=== PATIENT | female | born 1955 | race Caucasian/White ===

== ENCOUNTER 2020-02-25 07:13 | Observation (INO) | payer MEDICARE, SELFPAY ==
--- NOTE | ~2020-02-25 | CT_ITS ---
EXAMINATION: CT lumbar spine wo con DATE: 02/25/2020 09:11 INDICATION: Severe low back pain TECHNIQUE: Computed tomography (CT) of the lumbar spine was performed without intravenous contrast. T he dose-length product (DLP) was 1106.27 mGy-cm. Iterative reconstruction was used. COMPARISON: MRI, 04/17/2012 FINDINGS: There is no fracture, dislocation, or subluxation. There is moderate loss of intervertebral disc space height at L3-4 and L5-S1. The vertebral body heights are maintained. Small degenerative o steophytes project from the anterior endplates of multiple vertebral bodies. There is mild multilevel facet osteoarthritis. A cyst is noted in the liver. The gallbladder is surgically absent. IMPRESSION: 1. Mild lumbar spondylosis without acute findings or significant interval change. Reviewed, dictated and finalized at location A. IMPRESSION: 1. Mild lumbar spondylosis without acute findings or significant interval griffin allan
[2020-02-25 07:11] VITALS: BP 151/80; PULSE 99; RESP 18; TEMP 37; O2SAT 93
--- NOTE | 2020-02-25 07:30 | ED.BACK ---
HPI - Back Pain/Injury General Chief Complaint: Back Pain/Injury Stated Complaint: back pain Time Seen by Provider: 02/25/20 07:30 Source: patient and family Mode of arrival: EMS Limitations: no limitations History of Present Illness HPI Narrative: Patient is a 65-year-old female with a history of chronic lower back pain who presents via EMS with worsening lower back pain. Patient states her pain started yesterday, is sharp, stabbing in nature, feels like spasm type pain which has a burning sensation that she feels radiating down into her toes. Patient states pain is exacerbated with movement and improved with rest. Patient states that yesterday she had a mild right sciatica flareup which is typical for her, used a TENS unit that belonged to a friend which did improve the pain, and then did some back exercises with the instruction of her daughter, and afterwards pain has been much worse. Patient states she was bending forward over a table and doing leg lifts and now her pain is more severe. No recent falls or injury. No saddle anesthesia. No bowel or bladder incontinence or difficulties. No numbness in her lower extremities. Related Data Home Medications Medication Instructions Recorded Confirmed ascorbic acid (vitamin C) 1,000 mg 1 gm PO DAILY 10/11/19 tablet cod liver oil 1 cap PO TID 10/11/19 fluticasone propionate 50 2 spray NASAL DAILY 10/11/19 mcg/actuation nasal spray,suspension montelukast 10 mg tablet 10 mg PO DAILY 10/11/19 Allergies Allergy/AdvReac Type Severity Reaction Status Date / Time No Known Allergies Allergy Unverified 02/25/20 07:24 Review of Systems Review of Systems: Narrative: CONSTITUTIONAL: Denies fever CARDIOVASCULAR: Denies chest pain RESPIRATORY: Denies cough or dyspnea. GASTROINTESTINAL: Denies abdominal pain SKIN: Denies rash MUSCULOSKELETAL: Lower back pain present NEUROLOGIC: Denies headache PMFSH Past Medical History Medical History Depression Dysfunctional gallbladder MELANI (generalized anxiety disorder) Panic disorder Polyarthralgia Psoriasis Seasonal allergic rhinitis Family History Family History (Updated 06/05/16 @ 08:39 by DOCTOR UNKNOWN) Mother Family history of gastrointestinal disorder Family history of rheumatoid arthritis Family history of Parkinson's disease Family history of lung cancer Father Family history of renal cell carcinoma Other Family history of kidney disease Social History Social History Smoking status: Former smoker Smoking end date: 08/10/02 Alcohol intake: never Exam Narrative: Exam Narrative: GENERAL: Awake, alert, conversant HEAD: Normocephalic, atraumatic. EYES: PERRLA and EOMI. ENT: Nares clear, no rhinorrhea or epistaxis. Mucous membranes moist. NECK: Supple. CHEST: No respiratory distress, breathing even and non labored HEART: Regular rate, sinus rhythm ABDOMEN:Non distended, non tender EXTREMITIES: Tenderness over bilateral SI joints. Positive straight leg raise test bilaterally, greater on the left than on the right. DP pulses 2+ distally. Intact distal sensation. Full strength EHL/FHL bilateral lower extremities. No hyperreflexia. SKIN: Warm, dry, no rash. NEURO:No focal deficits. Alert and oriented x3 Course Vital Signs Vital signs: Vital Signs Temperature 37.0 C 02/25/20 07:11 Pulse Rate 99 02/25/20 07:11 Respiratory Rate 18 02/25/20 07:11 Blood Pressure 151/80 H 02/25/20 07:11 Pulse Oximetry 93 02/25/20 07:11 Temperature 37.0 C 02/25/20 07:11 Pulse Rate 78 02/25/20 09:56 Respiratory Rate 18 02/25/20 09:56 Blood Pressure 118/64 02/25/20 09:56 Pulse Oximetry 96 02/25/20 09:56 MDM - Back Pain/Injury MDM Narrative Medical decision making narrative: Patient is a 65-year-old with chronic sciatica type pain who presents with exacerbation
[2020-02-25] MEDS: ACETAMINOPHEN 500 MG TABLET 1000 MG PO (08:14)
[2020-02-25] MEDS: diazePAM 5 MG TABLET PO (08:15)
[2020-02-25] MEDS: KETOROLAC 30 MG/ML VIAL (*BKC) IV PUSH (08:17)
[2020-02-25 09:56] VITALS: BP 118/64; PULSE 78; RESP 18; O2SAT 96
--- NOTE | 2020-02-25 10:48 | PC.NURSE ---
Pt unable to tolerate bedpan. VORB for straight cath
--- NOTE | 2020-02-25 11:14 | PCOTNOTE ---
OT evaluation attempted. patient still in ED. Will attempt OT eval at later time.
--- NOTE | 2020-02-25 11:17 | PCPTNOTE ---
PT/OR orders received for this patient...attempted eval,....patient not yet on floor...will return later
[2020-02-25 11:36] VITALS: BP 120/67; PULSE 79; RESP 18; O2SAT 97
--- NOTE | 2020-02-25 12:17 | PCPTNOTE ---
PT/OT orders received to eval this patient...patient declines due to very significant pain...unable to use bed de la cruz due to pain...will see tomorrow as appropriate
--- NOTE | 2020-02-25 12:20 | PCOTNOTE ---
OT evaluation attempted. Patient refusing therapy at this time due to increased pain despite maximal encouragement. Patient agreeable to attempting therapy tomorrow. Will attempt OT evaluation at later time.
--- NOTE | 2020-02-25 14:18 | PM.IMHP ---
H&P: HPI History of Present Illness Chief complaint: lumbar radiculpathy Narrative: Shae Chahal is a 65 year old female who has a long history of chronic back pain. The patient stated that her back pain started approximately 9 years ago. She had an injury at that time where she was caring an infant and fell backwards the couple feet onto the ground her back. She has had intermittent back pain on and off since then. Patient had another episode about 7 years ago she had fallen off the wooden steps and landed on her back. The patient has not been to a chiropractor pain management. She typically is able to tolerate the discomfort. She states that when she 1st gets up out of bed she has back pain and sciatic pain that wraps around her right leg. But today it was worse than normal. The patient stated she was having difficulty sitting up and getting out of bed. Patient stated that she felt like her right leg was heavy. She has numbness and tingling to her lower extremities as well. She has a good color and circulation to lower extremities. She has tried pain medications at home and CBD oil as well. She has tried heat and ice and she also tried on a tens unit from onr of her friends. She said that she had some leftover Vicodin from I bleed a dental procedure. She took that today and it did help. She is having difficulty moving around. She has tried physical therapy in the past. She also has muscle relaxes at home. She stated that her pain is worse than normal. She is not incontinent of bowel or bladder she still has complete control of her bowel and bladder. Patient was having difficulty raising her right leg earlier in the emergency room but since she has had a pain pill she is able to raise both of her knees but is not able to do straight leg lift. Patient still is having too much pain when she sits up in the bed. Patient states that she is not able to tolerate an MRI because she has had in the past and has been too anxious even with using Ativan. The patient states that she is unable to undergo an MRI at this time because of her claustrophobia. Patient was given Valium, Toradol, dexamethasone, and Tylenol. Patient stated some relief with the pain medication. CT of the spine lumbar area was read as mild lumbar spondylosis without acute findings her significant interval changes. Patient was able to tolerate the CT scan without difficulty and stated that she has had those before. Date of service is 02/25/2020. Review of Systems Review of Systems: All systems reviewed & are unremarkable except as noted in HPI and below Constitutional: Constitutional: Reports as per HPI and Reports no additional constitutional complaints Eyes: Eyes: Reports as per HPI and Reports no additional eye complaints ENT: Reports system reviewed and no additional complaints, except as documented and Reports Normal hearing present Cardiovascular: Cardiovascular: Reports no additional cardiovascular complaints Respiratory: Respiratory: Reports no additional respiratory complaints and Reports no additional respiratory complaints Gastrointestinal: Gastrointestinal: Reports as per HPI and Reports no additional gastrointestinal complaints Musculoskeletal: Musculoskeletal: Reports no additional musculoskeletal complaints Integumentary/Breasts: Skin/Breast: Reports system reviewed and no additional complaints, except as docu and Reports as per HPI Neurologic: Reports system reviewed and no additional complaints, except as documented, Reports as per HPI and Reports Normal hearing present Psychiatric: Psychiatric: Reports no additional psychiatric complaints and Reports as per HPI Endocrine: Endocrine: Reports no additional endocrine complaints Hematologic/Lymphatic: Hematologic/Lymphatic: Reports no additional hematologic/lymphatic complaints Allergic/Immunologic: Allergic/Immunologic: Reports no additional allergic/immunologic complaints PMFSH Past Medical History
[2020-02-25 14:50] VITALS: BP 132/62; PULSE 68; RESP 14; TEMP 36.6; O2SAT 99
[2020-02-25] MEDS: PANTOPRAZOLE 40 MG TABLET PO (15:46)
[2020-02-25] MEDS: LORATADINE 10 MG TABLET PO (15:46)
[2020-02-25] MEDS: THERAPEUTIC MULTIVITAMINS/MINERALS TAB (*BKC) 1 TABLET PO (15:46)
--- NOTE | 2020-02-25 15:51 | PC.NURSE ---
This patient, Shae Chahal, was admitted to Medical Room 341-01. Patient/family oriented to hospital policies and general routines including ID bracelet, bed and alarms, visiting hours, pain management, procedures, bathroom and other care routines, personal items, smoking policy, room service/diet, and visiting hours. Valuables list has been completed. Information on how to activate the Rapid Response Team has been discussed. Patient/Family are encouraged to report perceived risks to care and to ask questions if they do not understand what they are told or what they should do.
[2020-02-25 16:10] VITALS: BMI 47.5
[2020-02-25] MEDS: GABAPENTIN 100 MG CAPSULE PO (17:33)
[2020-02-25] MEDS: CITALOPRAM HYDROBROMIDE 20 MG TABLET PO (17:33)
[2020-02-25] MEDS: DEXAMETHASONE SOD PHOS INJ 4 MG/ML VIAL IV PUSH ×2 (17:34→23:32)
[2020-02-25] MEDS: CYCLOBENZAPRINE HCL 5 MG TABLET PO (17:42)
[2020-02-25 20:22] VITALS: BP 113/63; PULSE 77; RESP 16; TEMP 36.1; O2SAT 93
[2020-02-26 05:54] LABS: Basophils Percent Auto 0.1 % (0.2-1.2); Hemoglobin 14.3 g/dL (12.0-15.0); Immature Granulocyte Absolute 0.06 K/mm3 (0.00-0.031); Immature Granulocyte Percent A 0.8 % (0-0.5); Lymphocytes Absolute Auto 0.96 K/mm3 (0.9-3.2); Lymphocytes Percent Auto 12.7 % (18.3-44.2); Mean Corpuscular HGB Conc 32.5 g/dl (32-36); Mean Corpuscular Hemoglobin 27.9 pg (26-34); Mean Corpuscular Volume 85.8 fl (80-100); Mean Platelet Volume 9.1 fl (7.4-10.4); Monocytes Absolute Auto 0.1 K/mm3 (0.1-0.6); Monocytes Percent Auto 1.2 % (2.6-8.5); Neutrophils Absolute Auto 6.4 K/mm3 (1.3-6.7); Neutrophils Percent Auto 85.2 % (45.5-73.1); Platelet Count Result 275 k/mm3 (150-375); Red Blood Count 5.13 M/mm3 (4.2-5.4); Red Cell Distribution Width 13.6 % (11.5-14.5); White Blood Count 7.6 K/mm3 (4.5-10.0)
[2020-02-26 06:00] VITALS: BP 122/73; PULSE 79; RESP 18; TEMP 36.6; O2SAT 95
[2020-02-26] MEDS: DEXAMETHASONE SOD PHOS INJ 4 MG/ML VIAL IV PUSH (06:16)
[2020-02-26 06:18] LABS: Alanine Aminotransferase 22 U/L (4-35); Albumin Level 4.3 g/dL (3.5-5.1); Alkaline Phosphatase 99 U/L (38-126); Aspartate Amino Transferase 23 U/L (14-36); Bilirubin,Total 0.5 mg/dL (0.2-1.3); Blood Urea Nitrogen 24 mg/dL (7-17); CRP 1.5 mg/dL (<1.0); Calcium 9.6 mg/dL (8.4-10.2); Carbon Dioxide 27 mmol/L (22-30); Chloride 104 mmol/L (98-107); Estimated CRCL calculation 68 ml/min; Estimated Glomerular Filt Rate > 60; Glucose 161 mg/dL (65-105); Potassium 4.2 mmol/L (3.4-5.0); Sodium 139 mmol/L (137-145)
[2020-02-26] MEDS: CYCLOBENZAPRINE HCL 5 MG TABLET PO (06:38)
[2020-02-26 07:18] LABS: Thyroid Stimulating Hormone Reflex 0.258 uIU/mL (0.465-4.68)
[2020-02-26] MEDS: KETOROLAC 15 MG/ML VIAL (*BKC) IV PUSH (07:54)
[2020-02-26 08:00] VITALS: PULSE 79; RESP 18; O2SAT 95
[2020-02-26] MEDS: FLUTICASONE PROPIONATE 0.05% NA SPR 16 GM BTL (*BKC) 2 SPRAY NASAL (08:01)
[2020-02-26] MEDS: THERAPEUTIC MULTIVITAMINS/MINERALS TAB (*BKC) 1 TABLET PO (08:02)
[2020-02-26] MEDS: GABAPENTIN 100 MG CAPSULE PO (08:02)
[2020-02-26] MEDS: ASCORBIC ACID 500 MG TABLET 1000 MG PO (08:02)
[2020-02-26] MEDS: CITALOPRAM HYDROBROMIDE 20 MG TABLET PO (08:03)
[2020-02-26] MEDS: PANTOPRAZOLE 40 MG TABLET PO (08:03)
[2020-02-26] MEDS: LORATADINE 10 MG TABLET PO (08:03)
[2020-02-26 08:37] LABS: Free T4 Free Thyroxine Reflex 1.02 ng/dL (0.78-2.19)
[2020-02-26 09:35] LABS: Total Triiodothyronine (T3) 0.95 NG/ML (0.97-1.69)
--- NOTE | 2020-02-26 11:23 | PM.DS ---
DS: Admitting Diagnosis Admitting Diagnosis Admitting Diagnosis: Low back pain DS: Discharge Diagnosis Discharge Diagnosis (1) Chronic lumbar pain: Code(s): M54.5 - Low back pain; G89.29 - Other chronic pain Status: Chronic Assessment and Plan: Likely due to radiculopathy and MSK in nature. Her pain is much better today with Decadron, Gabapentin, and narcotic. She only complains of paresthesias on right later thigh. No saddle anesthesia, loss of bowel/bladder function. NV intact b/l on exam. Pain to palpation on sacrum and left lumbar region. No CVA tenderness to suggest pyelo. Patient declined MRI during this this stay due to claustrophobia (ativan offered, but still declined) and she wants to possibly see a specialist first. PT/OT ordered and recommend OP therapy Recommend following up with PCP tomorrow with phone call to set up an appointment in next 1-2 weeks. Also need to discuss duration of therapy of decadron and gabapentin. Patient will be getting a walker from the pharmacy as well Understands not to drive while on sedative medication Patient and daughter comfortable with d/c home (2) Lumbar radiculopathy: Code(s): M54.16 - Radiculopathy, lumbar region Status: Acute Assessment and Plan: Please see above a/p Symptoms significantly improved overnight (3) Panic disorder: Code(s): F41.0 - Panic disorder [episodic paroxysmal anxiety] Status: Acute Assessment and Plan: No acute issues Continue home medications (4) MELANI (generalized anxiety disorder): Code(s): F41.1 - Generalized anxiety disorder Status: Acute Assessment and Plan: No acute issues Continue home medications (5) Seasonal allergic rhinitis: Code(s): J30.2 - Other seasonal allergic rhinitis Status: Acute Assessment and Plan: She was getting allergy injections I believe monthly but 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 Continue home medications at discharge DS: Summary Hospital Course Reason for hospitalization: Uncontrolled back pain Hospital Course: Patient is a 65 yo F with history of longstanding chronic back pain, MELANI, depression, and panic disorder who presented to the ER on 02/24 with complaints of lower back pain. While in the ED, pain was so severe, limiting mobility and requiring up to 3 people to move patient, reportedly. Patient admitted under this setting. Please see H&P for further details. Presenting VS: Temp Pulse Resp BP Pulse Ox 98.6 F 99 18 151/80 H 93 02/25/20 07:11 02/25/20 07:11 02/25/20 07:11 02/25/20 07:11 02/25/20 07:11 Presenting Pertinent labs: TSH 0.258, T4 1.02, T3 0.95. CBC, chemistry otherwise unremarkable Micro: none Imaging: Lumbar Spine CT 02/25/20 09:16 IMPRESSION: 1. Mild lumbar spondylosis without acute findings or significant interval change. ECG: none Patient was admitted to the hospitalist service for further evaluation and observation as well as for possible placement. Gabapentin and decadron were initiated on top of patient's flexeril and narcotics comparable to her home medication. Patient's pain had significantly improved overnight. PT/OT ordered and recommended outpatient therapy. She declined an inpatient MRI of the lumbar spine due to claustrophobia and wished to have this completed/ordered by a specialist as an outpatient. Plan was for her to be discharged on 1 weeks worth of gabapentin and dexamethasone and for her to follow up with her PCP and then ultimately a neurosurgeon and/or a orthopedic surgeon/police specialist. Patient and family agreeable and comfortable with plan for discharge. She was to use her narcotics and flexeril sparingly on top of her gabapentin. Patient hemodynamically
== END 2020-02-26 13:00 | disposition home or self-care (01) ==
LOC: ANHED 10:32 → ANH3MED 10:46
PROVIDERS: Nurse Practitioner; Admitting Provider Family Medicine; Emergency Provider Emergency Medicine; PCP Family Medicine; Visit Provider Physician Assistant
DX: M54.5 Low back pain (principal); G89.29 Other chronic pain; M54.16 Radiculopathy, lumbar region; F41.0 Panic disorder [episodic paroxysmal anxiety]; F41.1 Generalized anxiety disorder; J30.2 Other seasonal allergic rhinitis; F32.9 Major depressive disorder, single episode, unspecified; L40.9 Psoriasis, unspecified; Z87.891 Personal history of nicotine dependence
CPT/HCPCS: 36415; 51701; 72131; 80053; 84439; 84443; 84480; 85025; 86140; 96374; 96375; 96376; 97161; 97165; 97535; 99285; A9270; G0378; J1100; J1885

== ENCOUNTER → 2021-05-07 12:04 | Outpatient (CLI) | payer MEDICARE, SELFPAY ==
--- NOTE | ~2021-05-07 | XR_ITS ---
EXAMINATION: XR chest 2V EXAM DATE: 05/07/2021 12:37 INDICATION: R05 - Cough . Wheezing. Symptoms 2 weeks. TECHNIQUE: Frontal and lateral projections of the chest obtained and reviewed. Comparison is made to prior examination from 10/09/2017. FINDINGS: The lungs are clear. There are no pleural effusions. The cardiomediastinal silhouette is within normal limits. There is no pneumothorax suspected. The bones and soft tissues are unremarkab le. There is no significant interval change. IMPRESSION: No acute cardiopulmonary findings. Reviewed, dictated and finalized at location A.
== END ==
PROVIDERS: Visit Provider Family Medicine
DX: R05 Cough (principal)
CPT/HCPCS: 71046

== ENCOUNTER → 2021-05-08 11:10 | Outpatient (CLI) | payer MEDICARE, SELFPAY ==
--- NOTE | ~2021-05-08 | DEXA_ITS ---
Bone Density Report Name: Shae Chahal Age: 66 Sex: Female Ethnicity: White Date of : 1955 Indication: osteopenia; height loss; postmenopausal Referring Provider: Jorge Luis Hines Study: Bone densitometry was performed. Exam Date: May 08, 2021 Accession number: [id number] Bone Density: Region BMD T-score Z-score Classification AP Spine (L1-L4) 0.926 -1.1 0.8 Osteopenia Femoral Neck (Left) 0.666 -1.7 0.0 Osteopenia Total Hip (Left) 0.797 -1.2 0.2 Osteopenia Femoral Neck (Right) 0.679 -1.5 0.1 Osteopenia Total Hip (Right) 0.734 -1.7 -0.4 Osteopenia Total Hip Mean 0.766 -1.5 -0.1 Osteopenia World Health Organization criteria for BMD impression classify patients as: Normal (T-score at or above -1.0), Osteopenia (T-score between -1.0 and -2.5), or Osteoporosis (T-score at or below -2.5). 10-year Fracture Risk(1): Major Osteoporotic Fracture 8.4% Hip Fracture 1.6% Reported Risk Factors: [place] (), Neck BMD=0.666, BMI=44.6, smoking (1) FRAX(R) Version 3.08. Fracture probability calculated for an untreated patient. Fracture probability may be lower if the patient has received treatment. Previous Exams: Region Exam Age BMD T-score BMD Change BMD Change Date g/cm2 vs Baseline vs Previous AP Spine(L1-L4) 05/08/2021 66 0.926 -1.1 0.055* 0.055* 04/17/2012 57 0.871 -1.6 Total Hip(Left) 05/08/2021 66 0.797 -1.2 0.073* 0.073* 04/17/2012 57 0.724 -1.8 Total Hip(Right) 05/08/2021 66 0.734 -1.7 0.024 0.024 04/17/2012 57 0.709 -1.9 *Denotes significance at 95% confidence level, LSC for AP Spine = 0.022 g/cm2, LSC for Total Hip = 0.027 g/cm2 Clinical Information Provided by Patient: Smokes Has used the following medications: Vitamin D Patient maximum height was 64 Menopause Age: 39 No regular weight bearing exercise Drinks caffeinated beverages Onset of menses at age 16 Number of children 3 Impression: The patient has low bone mass, based on the Right Total Hip T-score. The patient has an estimated ten-year risk of hip fracture of 1.6% and an estimated ten-year risk of major fracture of 8.4%, based on the WHO FRAX algorithm. The patient has risk factors, including: smoking. No significant bone loss was observed. Discussion: BONE DENSITY IS LOW AT ONE OR MORE SKELETAL SITES. This patient's lowest T-score is low at one or more skeletal sites. It m
== END ==
PROVIDERS: PCP Family Medicine; Visit Provider Family Medicine
DX: Z78.0 Asymptomatic menopausal state (principal); M85.88 Other specified disorders of bone density and structure, other site; M85.852 Other specified disorders of bone density and structure, left thigh; M85.851 Other specified disorders of bone density and structure, right thigh
CPT/HCPCS: 77080

== ENCOUNTER → 2022-02-25 09:58 | Outpatient (CLI) | payer MEDICARE, SELFPAY ==
--- NOTE | ~2022-02-25 | XR_ITS ---
EXAMINATION: XR chest 2V 02/25/2022 10:23 INDICATION: Cough PROCEDURE: 2 view chest COMPARISON: 05/07/2021 FINDINGS: The lungs are clear. The cardiomediastinal silhouette is within normal limits. There are no pleural effusions. There is no pneumothorax suspected. IMPRESSION: 1: NO ACUTE CARDIOPULMONARY DISEASE. Reviewed, dictated and finalized at location A.
== END ==
PROVIDERS: PCP Family Medicine; Visit Provider Physician Assistant
DX: R05.9 Cough, unspecified (principal)
CPT/HCPCS: 71046

== ENCOUNTER 2023-03-23 15:41 | Outpatient (CLI) | payer MEDICARE, SELFPAY ==
--- NOTE | ~2023-03-23 | XR_ITS ---
EXAMINATION: XR chest 2V Exam Date/Time: 03/23/2023 15:46 CDT HISTORY: R05.9 - Cough, unspecified Comparison: 02/25/2022, 04/29/2021. RESULT: Lines, tubes, and devices: Cholecystectomy clips. Lungs and pleura: Nodular opacity in the peripheral right lower lung, otherwise clear. Cardiomediastinal silhouette: Stable. Other: No acute osseous or upper abdominal finding. IMPRESSION: Nodular right lower lung opacity, recommend low-dose noncontrast CT of the chest for further evaluati on. Reviewed, dictated and finalized at location K. IMPRESSION: Nodular right lower lung opacity, recommend low-dose noncontrast CT of the ches t for further evaluation.
== END 2023-03-23 15:42 ==
LOC: MICIMG 15:44
PROVIDERS: PCP Family Medicine; Visit Provider Family Medicine
DX: R05.9 Cough, unspecified (principal)
CPT/HCPCS: 71046

== ENCOUNTER → 2023-04-06 15:35 | Outpatient (CLI) | payer MEDICARE, SELFPAY ==
--- NOTE | ~2023-04-06 | CT_ITS ---
CT Scan of the Chest without Contrast: Clinical Indication: Nonspecific abnormal finding of lung field Technique: Contiguous sections were acquired throughout the chest without intravenous contrast. Dose reduction technique was used on this scan by utilizing automated exposure control and iterative recon struction technique. The dose-length product (DLP) was 662.99 mGy-cm. Findings: There is no evidence of any significant mediastinal, hilar or axillary lymphadenopathy. The mediastin al soft tissues appear normal. There is no evidence of pleural or pericardial effusion. The lungs are clear. No pulmonary nodules or infiltrates are noted. Images through the upper abdomen reveal multiple hepatic cysts. Impression: No significant abnormalities seen. Reviewed, dictated and finalized at location . Impression: No significant abnormalities seen.
== END ==
PROVIDERS: PCP Family Medicine; Visit Provider Physician Assistant
DX: R91.8 Other nonspecific abnormal finding of lung field (principal)
CPT/HCPCS: 71250

== ENCOUNTER 2023-04-15 13:33 | Outpatient (CLI) | payer MEDICARE, SELFPAY ==
--- NOTE | 2023-04-16 09:24 | WPDPFTINT ---
PFT Procedure Performed PFT Procedure Performed Spirometry with Pre/Post Bronchodilator Plethysmography (Lung Vol) Diffusing Cap (DLCO) Flow Vol Loop PFT Interpretation Lung volumes were measured with the body plethysmography method. The diminished expiratory reserve volume is related to obesity. The remaining lung volumes are unremarkable. Spirometry showed normal expiratory flow rates and a normal FEV1 to FVC ratio of 83%. Following administration of a bronchodilator there was no significant increase in the expiratory flow rates. Lung diffusion capacity is within the normal range at 100% predicted. The flow-volume loop is unremarkable. Impression: Spirometry, lung volumes, and lung diffusion capacity all within the normal range.
== END 2023-04-15 13:34 | disposition home or self-care (01) ==
LOC: ANHPFT 13:34
PROVIDERS: PCP Family Medicine; Visit Provider Family Medicine
DX: R05.9 Cough, unspecified (principal)
CPT/HCPCS: 94060; 94726; 94729

== ENCOUNTER → 2023-09-17 10:58 | Outpatient (CLI) | payer MEDICARE, SELFPAY ==
--- NOTE | ~2023-09-17 | DEXA_ITS ---
Bone Density Report Name: ELOISA HAAS Age: 68 Sex: Female Ethnicity: White Date of : 1955 Indication: osteopenia; height loss; postmenopausal Referring Provider: YESY GARCIA Study: Bone densitometry was performed. Exam Date: September 17, 2023 Accession number: [id number] Bone Density: Region BMD T-score Z-score Classification AP Spine (L1-L4) 0.943 -0.9 1.1 Normal Femoral Neck (Left) 0.684 -1.5 0.3 Osteopenia Total Hip (Left) 0.776 -1.4 0.1 Osteopenia Femoral Neck (Right) 0.761 -0.8 1.0 Normal Total Hip (Right) 0.750 -1.6 -0.1 Osteopenia Total Hip Mean 0.763 -1.5 0.0 Osteopenia World Health Organization criteria for BMD impression classify patients as: Normal (T-score at or above -1.0), Osteopenia (T-score between -1.0 and -2.5), or Osteoporosis (T-score at or below -2.5). 10-year Fracture Risk(1): Major Osteoporotic Fracture 8.5% Hip Fracture 1.8% Reported Risk Factors: [place] (), Neck BMD=0.684, BMI=45.0, smoking (1) FRAX(R) Version 3.08. Fracture probability calculated for an untreated patient. Fracture probability may be lower if the patient has received treatment. Previous Exams: Region Exam Age BMD T-score BMD Change BMD Change Date g/cm2 vs Baseline vs Previous AP Spine(L1-L4) 09/17/2023 68 0.943 -0.9 0.073* 0.018 05/08/2021 66 0.926 -1.1 0.055* 0.055* 04/17/2012 57 0.871 -1.6 Total Hip(Left) 09/17/2023 68 0.776 -1.4 0.052* -0.022 05/08/2021 66 0.797 -1.2 0.073* 0.073* 04/17/2012 57 0.724 -1.8 Total Hip(Right) 09/17/2023 68 0.750 -1.6 0.041* 0.017 05/08/2021 66 0.734 -1.7 0.024 0.024 04/17/2012 57 0.709 -1.9 *Denotes significance at 95% confidence level, LSC for AP Spine = 0.022 g/cm2, LSC for Total Hip = 0.027 g/cm2 Clinical Information Provided by Patient: Smokes Has used the following medications: Vitamin D Patient maximum height was 64 Menopause Age: 39 No regular weight bearing exercise Drinks caffeinated beverages Onset of menses at age 16 Number of children 3 Impression: The patient has low bone mass, based on the Right Total Hip T-score. The patient has an estimated ten-year risk of hip fracture of 1.8% and an estimated ten-year risk of major fracture of 8.5%, based on the WHO FRAX algorithm. The patient has risk factors, including: bradyin
== END ==
PROVIDERS: PCP Family Medicine; Visit Provider Family Medicine
DX: Z78.0 Asymptomatic menopausal state (principal); M85.852 Other specified disorders of bone density and structure, left thigh; M85.851 Other specified disorders of bone density and structure, right thigh
CPT/HCPCS: 77080

== ENCOUNTER 2023-11-18 07:28 | Outpatient (CLI) | payer MEDICARE, SELFPAY ==
--- NOTE | ~2023-11-18 | US_ITS ---
Limited Abdominal Sonogram: Real-time sonographic imaging of the right upper quadrant was performed. Clinical History: Right upper quadrant pain Findings: The liver appears normal with no evidence of solid mass lesion or bile duct dilatation. Ma in portal vein demonstrates normal direction of flow. Left hepatic lobe cyst measures 2.[address] Right hepatic lobe cyst measures 2.8 cm in diameter. Additional smaller right hepatic lobe cyst also present. The gallbladder is absent, compatible prior cholecystectomy. The common bile duct measu res 5 mm. The visualized pancreas, aorta, and IVC are unremarkable. Impression: Status post cholecystectomy. Hepatic cysts, as noted above. Reviewed, dictated and finalized at location M. Impression: Status post cholecystectomy. Hepatic cysts, as noted above.
== END 2023-11-18 07:29 | disposition home or self-care (01) ==
PROVIDERS: PCP Family Medicine; Visit Provider Family Medicine
DX: R10.11 Right upper quadrant pain (principal); Z90.49 Acquired absence of other specified parts of digestive tract; K76.89 Other specified diseases of liver
CPT/HCPCS: 76705

== ENCOUNTER 2024-03-29 07:46 | Outpatient (CLI) | payer MEDICARE, SELFPAY | END 2024-03-29 07:47 | disposition home or self-care (01) | LOC: ANHAUDIO 07:46 | PROVIDERS: PCP Family Medicine; Visit Provider Otolaryngology | DX: H61.23 Impacted cerumen, bilateral (principal); J30.2 Other seasonal allergic rhinitis; K04.7 Periapical abscess without sinus; H90.3 Sensorineural hearing loss, bilateral | CPT/HCPCS: 92557; 92567 ==

== ENCOUNTER 2024-07-29 09:47 | Outpatient (CLI) | payer MEDICARE, SELFPAY ==
--- NOTE | ~2024-07-29 | XR_ITS ---
Clinical Indication: Cough PA and lateral views of the chest: Comparison: 03/23/2023 Findings: The lungs are clear, without evidence of focal consolidation or pleural effusion. Cardiome diastinal silhouette is within normal limits. Bones and soft tissues are unremarkable. Impression: Normal chest. Reviewed, dictated and finalized at [facility]. ESS SUPERVISOR Impression: Normal chest.
== END 2024-07-29 09:48 | disposition home or self-care (01) ==
PROVIDERS: PCP Family Medicine; Visit Provider Physician Assistant Medical
DX: R05.9 Cough, unspecified (principal)
CPT/HCPCS: 71046